=== PATIENT | female | born 1935 | race Caucasian/White ===

== ENCOUNTER → 2016-05-28 | Outpatient (CLI) | payer OTHER ==
[~2016-05-28] MED LIST: IOPAMIDOL (ISOVUE 370) 100 ML BTL IV ONE
--- NOTE | 2016-05-28 19:08 | CT ---
CT Angiogram Abdomen And Pelvis History: Takayasu arteritis. High blood pressure. Comparison: CT angiogram chest August 24, 2011. CT runoff April 27, 2009. Technique: Axial contrast-enhanced images were obtained through the abdomen and pelvis following the uneventful intravenous administration of 90 mL Isovue-370. Multiplanar reformations were performed. Creatinine is 0.7. Dose reduction techniques were utilized. Findings: Vascular: Circumferential thickening of the aorta is again noted, compatible with history of Takayasu 's arteritis. The celiac and SMA origins are widely patent. A stent is noted in the proximal right re nal artery with no significant right renal artery or in-stent stenosis. Mild atherosclerosis is prese nt in the left renal artery with minimal stenosis. Single renal arteries are present. The LEDY is wide ly patent. The common iliac arteries are circumferentially thickened compatible with arteritis, with no signific ant stenosis. There is mild narrowing of the proximal right internal iliac artery with poststenotic d ilatation. There is mild narrowing of the left internal iliac artery with poststenotic dilatation. Th e right common femoral artery, superficial femoral artery, and profunda artery are widely patent in t heir visualized extent. The left common femoral artery is minimally irregular without significant edvin nosis. The visible left superficial femoral and profunda arteries are widely patent. Abdomen: There is mild basilar scarring/atelectasis. Hypodensities in the liver are too small to nona acterize, statistically likely represent cysts. Phrygian cap is suspected in the gallbladder which is otherwise normal. Granulomas noted in the spleen. Pancreas divisum is noted. The adrenals are normal . Cortical scarring is noted in the anterior-inferior right kidney. There is an exophytic 1.4 cm cyst in the lateral left kidney. Additional tiny hypodensities in the left kidney are too small to charac terize. Moderate stool is present in the colon. The visible colon and small bowel are normal. A small hiatal hernia is present. No pathologically enlarged lymph nodes are identified. No aggressive osseous lesions are identified. There is increased degenerative change in the lumbar sp ine, with multilevel spinal canal narrowing, most severe at L2-L3 and L3-L4. Grade 1 anterolisthesis of L4 on L5 is noted. Old mild compression fracture of T11 is stable. Pelvis: The bladder is normal. The uterus is surgically absent. No pathologically enlarged lymph node s are identified. No aggressive osseous lesions are present. Impression: 1. Thickening of the aorta and common iliac arteries compatible with history of Takayasu's arteritis, with no significant renal artery stenosis. 2. 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 3. Degenerative change in the lumbar spine. 4. Additional findings as above. An attempt was made to page the physician on-call for Dr. Nathan today at 1850 hours. A Follow-Up Required message has been communicated to IMELDA NATHAN via the [employer] system on 05/28/2016 19:06, Message ID [id number].
== END ==
LOC: FIMAGING 16:41
PROVIDERS: ATTEND Internal Medicine Rheumatology
DX: M31.4 Aortic arch syndrome [Takayasu] (principal); I73.9 Peripheral vascular disease, unspecified; I10 Essential (primary) hypertension
CPT/HCPCS: 74174; Q9967

== ENCOUNTER → 2018-01-22 | Outpatient (CLI) | payer OTHER | LOC: FIMAGING 09:43 | PROVIDERS: ATTEND Family Medicine | DX: M85.9 Disorder of bone density and structure, unspecified (principal); E28.39 Other primary ovarian failure; Z78.0 Asymptomatic menopausal state ==